=== PATIENT | female | born 1985 | race Caucasian/White ===

== ENCOUNTER → 2016-11-15 | Outpatient (CLI) | payer OTHER ==
[~2016-11-15] MED LIST: BCPILLS PO; CITA20TA9 PO; LEVE500T13 PO; LEVO125T4 PO; NRN/300 PO; OXYC-57 PO
== END | disposition home or self-care (01) ==
LOC: C.LABSPEC 15:08
PROVIDERS: ATTEND Urology
DX: N23 Unspecified renal colic (principal)

== ENCOUNTER → 2016-11-15 | Outpatient (CLI) | payer OTHER ==
--- NOTE | 2016-11-15 12:14 | DIAGNOSTIC IMAGING REPORT ---
CHEST 2 VIEWS ROUTINE CLINICAL HISTORY: Preoperative chest. Right-sided kidney stones. COMPARISON STUDY: No previous studies for comparison. FINDINGS: The cardiac and mediastinal contours are normal. There is no evidence of focal pulmonary consolidation. There is no evidence of failure. No pleural effusions are visualized.[ IMPRESSION: No active disease in the chest. Electronically signed by: Rivas Walker M.D. 11/15/2016 12:12 PM Dictated Date/Time: 11/15/2016 12:12 PM
--- NOTE | 2016-11-15 12:15 | DIAGNOSTIC IMAGING REPORT ---
KUB CLINICAL HISTORY: Preoperative examination. Lithotripsy. FINDINGS: 3 AP supine abdominal radiographs are obtained. No prior studies are available for comparison at the time of dictation. There is a nonobstructed abdominal bowel gas pattern. Residual enteric contrast is noted in the rectosigmoid colon. There is a 5 mm calculus projecting over the right proximal ureter, just below the transverse process of L2. No additional calcifications are seen projecting over either kidney or along the course of the ureters. Calcifications in the right hemipelvis likely represent phleboliths. The bony structures appear intact. IMPRESSION: 1. A 5 mm calcification projecting over the right proximal ureter likely represents an obstructing calculus. 2. No additional calculi are clearly seen projecting over either kidney on the course of ureters. 3. Calcifications in the right hemipelvis likely represent phleboliths. Correlation with any prior outside imaging studies is recommended. Electronically signed by: J Carlos Chao M.D. 11/15/2016 12:14 PM Dictated Date/Time: 11/15/2016 12:12 PM
== END | disposition home or self-care (01) ==
LOC: C.RAD 11:34
PROVIDERS: ATTEND Urology
DX: N20.0 Calculus of kidney (principal); N23 Unspecified renal colic

== ENCOUNTER → 2016-11-22 | Day surgery (SDC) | payer OTHER ==
[2016-11-20 09:14] VITALS: Ht 152.4 cm; Wt 98.6 kg
--- NOTE | 2016-11-21 09:30 | PAT Medication Instructions ---
Service Date Nov 21, 2016. Current Home Medication List Control Pills ( Control Pills), 1 TAB PO QAM Citalopram Hydrobromide (Celexa), 1.5 MG PO QAM Gabapentin (Neurontin), 300 MG PO BID Levetiracetam (Keppra), 500 MG PO BID Levothyroxine Sodium (Levothyroxine Sodium), 1 TAB PO QAM Medication Instructions For Your Scheduled Surgery Control Pills ( Control Pills), 1 TAB PO QAM (continue as usual per surgeon instructions) - Take the following medications the morning of surgery with a sip of water: Levothyroxine Sodium (Levothyroxine Sodium), 1 TAB PO QAM Levetiracetam (Keppra), 500 MG PO BID Gabapentin (Neurontin), 300 MG PO BID (if needed) Citalopram Hydrobromide (Celexa), 1.5 MG PO QAM - Take the following medications as scheduled the night before surgery: Levetiracetam (Keppra), 500 MG PO BID Gabapentin (Neurontin), 300 MG PO BID If you have any questions please call us at [phone] or [phone] ( [place]) or [phone]
[~2016-11-22] VITALS: Ht 152.4 cm; Wt 98.6 kg
[~2016-11-22] MED LIST changes: +ATROPINE SULFATE 0.1 MG/ML 5ML SYR IV PRN; +CIPROFLOXACIN 400MG / D5W IV SCH; +DEXAMETHASONE SOD INJ 4 MG/ML VIAL ONE; +FENTANYL CITRATE INJ 50 MCG/1 ML 2 ML VIAL IV PRN; +FENTANYL CITRATE INJ 50 MCG/1 ML 2 ML VIAL ONE; +IOPAMIDOL INJ 61% 15 ML VIAL ONE; +LABETALOL HCL IV 5 MG/ML 20ML IV PRN; +LACTATED RINGER'S 1000ML 1,000 ML IV SCH; +LIDOCAINE HCL 2% 2 ML VIAL (20MG/ML) ONE; +MIDAZOLAM HCL 1 MG/ML 2ML VIAL ONE; +ONDANSETRON INJ 2 MG/ML 2 ML VIAL IV PRN; +ONDANSETRON INJ 2 MG/ML 2 ML VIAL ONE; +PROPOFOL IV EMULSION 10 MG/ML 20 ML VIAL IV ONE
--- NOTE | 2016-11-22 11:52 | History & Physical Bridge - [place] ---
H&P Re-Evaluation Bridge Note: I have examined the patient, reviewed the History & Physical and in the interval since the performance of the History & Physical I have noted the following changes of clinical significance: No changes noted
[2016-11-22 13:12] VITALS: BP 157/116; PULSE 87; TEMP 36.8; O2SAT 96
--- NOTE | 2016-11-22 13:23 | Anesthesiology Progress Note ---
Anesthesia Progress Note Date of Service Nov 22, 2016. Progress Notes Patient taken to OR, unable to locate stone. Tried IV dye and no stone seen. No anesthesia meds given, case cancelled.
--- NOTE | 2016-11-22 13:36 | Discharge Instructions-SurgCtr ---
Discharge Instructions Visit Reason for Visit: Stones Discharge Goals Goal(s): Decrease discomfort, Increase independence, Improve disease control Activity Recommendations Activity Limitations: as noted below (no driving on narcotics) Anesthesia . Post Anesthesia Instructions: If you have had General Anesthesia or IV Sedation: * Do not drive today. * Resume driving when surgeon permits. * Do not make important decisions or sign legal documents today. * Call surgeon for: 1. Temperature elevations greater than 101 degrees F. 2. Uncontrollable pain. 3. Excessive bleeding. 4. Persistent nausea and vomiting. 5. Medication intolerance (nausea, vomiting or rash). * For nausea and vomiting use only clear liquids such as: tea, soda, bouillon until nausea subsides, then gradually increase diet as tolerated. * If you have any concerns or questions, call your surgeon's office. If physician is unavailable and it is an emergency, call 911 or go to the nearest emergency room. . Diet Recommendations Home Diet: resume previous diet Procedures Procedures Performed: Dry run - no stone visualized Medical Emergencies . Who to Call and When: Medical Emergencies: If at any time you feel your situation is an emergency, please call 911 immediately. . Non-Emergent Contact Non-Emergency issues call your: Urologist Call Non-Emergent contact if: temperature is above 101 . . "Provider Documentation" section prepared by Gera Hardy. [place] Drug Monitoring Program Drug Monitoring Findings: pt with recent activity related to stone
--- NOTE | 2016-11-22 14:11 | DIAGNOSTIC IMAGING REPORT ---
KUB CLINICAL HISTORY: Ureteral stone. COMPARISON STUDY: CT of the abdomen and pelvis November 11, 2016 and KUB November 15, 2016. FINDINGS: The 5 mm right ureteral calculus shown on prior KUB and CT is not visualized on this exam although penetration is suboptimal on this examination. 2 right pelvic calcifications were shown to represent phleboliths on CT of November 11, 2016. IMPRESSION: Nonvisualization of the right ureteral calculus shown on prior KUB and CT although penetration on this exam is suboptimal. Electronically signed by: Mikhail Bowling M.D. 11/22/2016 2:10 PM Dictated Date/Time: 11/22/2016 2:07 PM
--- NOTE | 2016-11-22 14:28 | OPERATIVE REPORT ---
DATE OF OPERATION: 11/22/2016 DATE OF PROCEDURE: 11/22/2016. PROCEDURE PERFORMED: Dry run visualization for ESWL. HISTORY OF PRESENTATION: The patient is a 31-year-old female with a history of having flank pain who had a CAT scan that showed a proximal stone and a KUB that showed what appeared to be a proximal stone. She presents now for ESWL. Because the x-ray was a week old we elected not to put her to sleep prior to doing the procedure to make sure we could visualize the stone. On x-ray the stone was not visualized. On fluoroscopy we looked up and down the ureter twice without visualizing although there were 2 dots visualized in the pelvis that were previously there and felt previously to be phleboliths. After this, we got a KUB which did not show anything as well and then give her IV contrast for an IVP and there was a lot of bowel gas, but it appeared that the contrast went all the way down to the bladder and there was no obvious hanging up of the contrast in the ureter to indicate acute obstruction. Because of this, the patient was not lithotripsied, she was never given anesthesia. She was discharged home with instructions to follow up earlier next week with a KUB. I also gave her instructions to followup if she had a fever of 101 and go to the Emergency Room if her pain got out of control. I did give her some more narcotics. She has been checked. She does have a history of narcotic use recently with this as well as previous allergy to tramadol and Toradol. I attest to the content of the Intraoperative Record and any orders documented therein. Any exceptio ns are noted below.
== END | disposition home or self-care (01) ==
LOC: X.SURG 10:27
PROVIDERS: ATTEND Urology
DX: N20.1 Calculus of ureter (principal); N20.0 Calculus of kidney; N13.30 Unspecified hydronephrosis; N23 Unspecified renal colic; Z98.890 Other specified postprocedural states; F17.200 Nicotine dependence, unspecified, uncomplicated; Z68.41 Body mass index [BMI] 40.0-44.9, adult; Z83.3 Family history of diabetes mellitus; Z82.49 Family history of ischemic heart disease and other diseases of the circulatory system; M19.90 Unspecified osteoarthritis, unspecified site; E66.01 Morbid (severe) obesity due to excess calories; F32.9 Major depressive disorder, single episode, unspecified

== ENCOUNTER → 2016-12-06 | Day surgery (SDC) | payer OTHER ==
[2016-12-05 09:03] VITALS: Ht 152.4 cm; Wt 98.6 kg
[~2016-12-06] VITALS: Ht 152.4 cm; Wt 98.6 kg
[~2016-12-06] MED LIST changes: -DEXAMETHASONE SOD INJ 4 MG/ML VIAL ONE; +EpHEDrine SULFATE INJ 50 MG/ML AMP IV PRN; -FENTANYL CITRATE INJ 50 MCG/1 ML 2 ML VIAL IV PRN; -IOPAMIDOL INJ 61% 15 ML VIAL ONE; -LABETALOL HCL IV 5 MG/ML 20ML IV PRN; +NURSING VERBAL MED ORDER ONE; -ONDANSETRON INJ 2 MG/ML 2 ML VIAL IV PRN; +OXYCODONE/ACETAMINOPHEN 5-325 TAB PO PRN
--- NOTE | 2016-12-06 12:29 | Discharge Instructions-SurgCtr ---
Discharge Instructions Visit Reason for Visit: Stones Discharge Goals Goal(s): Decrease discomfort, Increase independence, Improve disease control Activity Recommendations Activity Limitations: per Instructions/Follow-up section (no driving on narcotics) Anesthesia . Post Anesthesia Instructions: If you have had General Anesthesia or IV Sedation: * Do not drive today. * Resume driving when surgeon permits. * Do not make important decisions or sign legal documents today. * Call surgeon for: 1. Temperature elevations greater than 101 degrees F. 2. Uncontrollable pain. 3. Excessive bleeding. 4. Persistent nausea and vomiting. 5. Medication intolerance (nausea, vomiting or rash). * For nausea and vomiting use only clear liquids such as: tea, soda, bouillon until nausea subsides, then gradually increase diet as tolerated. * If you have any concerns or questions, call your surgeon's office. If physician is unavailable and it is an emergency, call 911 or go to the nearest emergency room. . Diet Recommendations Home Diet: resume previous diet Procedures Procedures Performed: Right Extracorporeal Shock Wave Lithotripsy, Repeat--Ureteral Pending Studies Studies pending at discharge: no Medical Emergencies . Who to Call and When: Medical Emergencies: If at any time you feel your situation is an emergency, please call 911 immediately. . Non-Emergent Contact Non-Emergency issues call your: Urologist . . "Provider Documentation" section prepared by Gera Hardy.
[2016-12-06 13:34] VITALS: TEMP 36.7
[2016-12-06 13:53] VITALS: BP 136/90; PULSE 76; O2SAT 99
--- NOTE | 2016-12-06 14:00 | Anesthesia Progress Nt - [facility] ---
Anesthesia Post Op Note Date & Time Dec 06, 2016 at 14:00 Vital Signs Pain Intensity: 6.0 Vital Signs Past 12 Hours Date Time Temp Pulse Resp B/P Pulse Ox O2 Delivery O2 Flow Rate FiO2 12/06/16 13:53 76 16 136/90 99 Room Air 12/06/16 13:34 36.7 89 16 143/85 99 Room Air 12/06/16 13:21 81 16 95 12/06/16 13:21 82 16 12/06/16 13:20 134/87 12/06/16 13:20 36.5 86 16 134/87 96 Room Air 12/06/16 13:16 84 18 95 12/06/16 13:16 86 18 12/06/16 13:15 126/96 12/06/16 13:14 93 18 96 12/06/16 13:14 93 18 12/06/16 13:10 135/87 12/06/16 13:09 90 16 99 12/06/16 13:09 89 16 12/06/16 13:05 140/91 12/06/16 13:04 93 17 12/06/16 13:04 93 17 100 12/06/16 13:00 134/91 12/06/16 12:59 95 18 98 12/06/16 12:59 94 18 12/06/16 12:57 137/98 12/06/16 12:55 171/107 12/06/16 12:54 96 15 98 12/06/16 12:54 96 15 12/06/16 12:53 36.4 101 20 146/117 95 Diffusion Mask 6 12/06/16 12:50 138/100 12/06/16 12:49 101 146/117 89 12/06/16 12:49 101 12/06/16 11:21 36.8 88 16 144/90 97 Room Air Notes Mental Status: alert / awake / arousable, participated in evaluation Pt Amnestic to Procedure: Yes Nausea / Vomiting: adequately controlled Pain: adequately controlled Airway Patency, RR, SpO2: stable & adequate BP & HR: stable & adequate Hydration State: stable & adequate Anesthetic Complications: no major complications apparent
--- NOTE | 2016-12-06 16:12 | OPERATIVE REPORT ---
DATE OF OPERATION: 12/06/2016 PREOPERATIVE DIAGNOSIS: Proximal right ureteral stone. POSTOPERATIVE DIAGNOSIS: Same. SURGEON: Dr. Hardy. PROCEDURE: Right ureteral ESWL. ANESTHESIA: General. INDICATIONS: The patient is a 31-year-old female who has had a longstanding proximal right ureteral calculus, it is relatively small 2-3 mm, that in one KUB earlier in November was easy to see. She came for a lithotripsy 2 weeks ago, at which time I was performing lithotripsies and we were unable to visualize the stone due to bowel gas using every technique we could think including iodine. The patient had a subsequent CAT scan which confirmed the stone was still present. She has had ongoing pain and refused to have ureteroscopy because of her fear of having a stent, so we rescheduled for lithotripsy, asked her to have a bowel prep yesterday and last evening Dr. Rodriguez rescheduled her for today. She had a KUB which we could see with some difficulty the stone in same position and so we again decided to make sure we could see it prior to putting her to sleep, but could see it intermittently, but very easily at the beginning of the procedure. DESCRIPTION OF THE PROCEDURE: The patient was brought back given sedation and then given general anesthesia. She had Venodyne stockings and was given antibiotics. Initially, we attempted to go posterior but it was easier to get the stone into view going anterior, so the patient was positioned and the stone was visualized in 2 dimensions and she was given 3000 shocks as the stone was below the lower pole of the kidney. At the end of the procedure was difficult to see the stone. She was given shocks up to level 5 initially and then from level 6 from [id number], but when the stone became more difficult to see backed that down to level 5. At the end of the procedure, she was transferred to the recovery room in stable condition. I attest to the content of the Intraoperative Record and any orders documented therein. Any exceptions are noted below. MYLES
== END | disposition home or self-care (01) ==
LOC: X.SURG 11:09
PROVIDERS: ATTEND Urology
DX: N20.1 Calculus of ureter (principal); N13.30 Unspecified hydronephrosis; N23 Unspecified renal colic; G40.909 Epilepsy, unspecified, not intractable, without status epilepticus; Z98.890 Other specified postprocedural states

== ENCOUNTER → 2016-12-06 | Outpatient (CLI) | payer OTHER ==
[~2016-12-06] MED LIST changes: -ATROPINE SULFATE 0.1 MG/ML 5ML SYR IV PRN; -CIPROFLOXACIN 400MG / D5W IV SCH; -EpHEDrine SULFATE INJ 50 MG/ML AMP IV PRN; -FENTANYL CITRATE INJ 50 MCG/1 ML 2 ML VIAL ONE; -LACTATED RINGER'S 1000ML 1,000 ML IV SCH; -LIDOCAINE HCL 2% 2 ML VIAL (20MG/ML) ONE; -MIDAZOLAM HCL 1 MG/ML 2ML VIAL ONE; -NURSING VERBAL MED ORDER ONE; -ONDANSETRON INJ 2 MG/ML 2 ML VIAL ONE; -OXYCODONE/ACETAMINOPHEN 5-325 TAB PO PRN; -PROPOFOL IV EMULSION 10 MG/ML 20 ML VIAL IV ONE
--- NOTE | 2016-12-06 11:32 | DIAGNOSTIC IMAGING REPORT ---
KUB CLINICAL HISTORY: Right ureteral stone. COMPARISON STUDY: KUB November 15, [address] of the abdomen and pelvis December 02, 2016. FINDINGS: Several calcific densities project inferior to the right transverse process of L2. These measure up to 3 mm. Pelvic calcifications represent phleboliths. No additional urinary calculi are identified. IMPRESSION: A few calcifications projecting over the expected course of the proximal right ureter measuring up to 3 mm. These suggest proximal right ureteral calculi/fragments, similar in location to previous study. Electronically signed by: Mikhail Bowling M.D. 12/06/2016 11:30 AM Dictated Date/Time: 12/06/2016 11:26 AM
== END | disposition home or self-care (01) ==
LOC: C.RAD 10:24
PROVIDERS: ATTEND Urology
DX: N20.1 Calculus of ureter (principal)

== ENCOUNTER → 2016-12-25 | Outpatient (CLI) | payer OTHER | END | disposition home or self-care (01) | LOC: C.LABSPEC 17:18 | PROVIDERS: ATTEND Urology | DX: N20.2 Calculus of kidney with calculus of ureter (principal); N13.30 Unspecified hydronephrosis; N23 Unspecified renal colic ==

== ENCOUNTER → 2016-12-25 | Outpatient (CLI) | payer OTHER ==
--- NOTE | 2016-12-25 10:58 | DIAGNOSTIC IMAGING REPORT ---
KUB CLINICAL HISTORY: N20.0 Calculus of kidney BE DONE EITHER THE NIGHT BEFORE OR MO COMPARISON STUDY: 12/06/2016 FINDINGS: Calcification previously described overlying the proximal aspect of the right ureter are less well-defined currently. This may be secondary to interval passage of the calcifications overlying bowel content obscures detail. IMPRESSION: Calcification of the proximal right ureter not easily appreciated on the current study. These calcifications may have passed or are being obscured by overlying bowel content Electronically signed by: Timoteo Rivera M.D. 12/25/2016 10:57 AM Dictated Date/Time: 12/25/2016 10:54 AM
== END | disposition home or self-care (01) ==
LOC: C.RAD 10:37
PROVIDERS: ATTEND Urology
DX: N20.0 Calculus of kidney (principal)